=== PATIENT | male | born 1990 | race Caucasian/White ===

== ENCOUNTER → 2017-08-11 | Outpatient (CLI) | payer BC ==
--- NOTE | 2017-08-11 12:52 | DIAGNOSTIC IMAGING REPORT ---
L FOOT MIN 3 VIEWS ROUTINE HISTORY: 26 years-old Male M79.672 Left foot [id number] acute left foot pain status post recent injury COMPARISON: None available TECHNIQUE: 3 views of the left foot FINDINGS: There is no acute fracture or dislocation. There is partial obscuration of the subtalar joint on the lateral view with prominent dorsal spurring/beaking of the anterior process talus. Soft tissues are unremarkable without opaque foreign body. No stress fracture. IMPRESSION: 1. No acute fracture or dislocation. 2. 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 If of further clinical concern, this could be evaluated with CT of the foot. The above report was generated using voice recognition software. It may contain grammatical, syntax or spelling errors. Electronically signed by: Victoriano Kong M.D. 08/11/2017 12:51 PM Dictated Date/Time: 08/11/2017 12:46 PM
== END | disposition home or self-care (01) ==
LOC: C.RADBC 12:24
PROVIDERS: ATTEND Nurse Practitioner Adult Health
DX: M79.672 Pain in left foot (principal)